=== PATIENT | male | born 1990 | race Caucasian/White ===

== ENCOUNTER 2018-08-13 18:23 | Emergency (ER) | payer BC ==
[~2018-08-13] VITALS: Ht 165.1 cm; Wt 98.0 kg
[2018-08-13 18:50] VITALS: Ht 165.1 cm; Wt 98.0 kg
[2018-08-13 22:44] VITALS: BP 153/76
== END 2018-08-13 22:43 | disposition home or self-care (01) ==
LOC: ED 18:23
DX: S92.421A Displaced fracture of distal phalanx of right great toe, initial encounter for closed fracture (principal); S91.211A Laceration without foreign body of right great toe with damage to nail, initial encounter; X58.XXXA Exposure to other specified factors, initial encounter; Y93.89 Activity, other specified; Y92.89 Other specified places as the place of occurrence of the external cause; Y99.8 Other external cause status
CPT/HCPCS: J1885

== ENCOUNTER 2020-03-11 03:27 | Emergency (ER) | payer BC ==
[~2020-03-11] VITALS: Ht 165.1 cm; Wt 99.3 kg
[2020-03-11 03:39] VITALS: Ht 165.1 cm; Wt 99.3 kg
[2020-03-11 04:50] LABS: BASOPHIL % 0.5 % (0.2-1.5); PLATELET COUNT 147 x10^3mcL (152-348); RED CELL DISTRIBUTION WIDTH 12.6 % (12.1-16.2)
[2020-03-11 05:11] LABS: CALCIUM 8.9 mg/dL (8.5-10.1); CHLORIDE SERUM 102 mmol/L (98-107); CREATININE SERUM 1.1 mg/dL (0.7-1.3); GFR1 > 60 mL/min; GLUCOSE SERUM 100 mg/dL (74-106); POTASSIUM SERUM 3.6 mmol/L (3.5-5.1); SODIUM SERUM 139 mmol/L (136-145)
[2020-03-11 05:16] LABS: ALKALINE PHOSPHATASE 45 U/L (46-116); ALT/SGPT 47 U/L (16-63); AST/SGOT 24 U/L (15-37); BILIRUBIN TOTAL 0.59 mg/dL (0.20-1.00); TOTAL PROTEIN, SERUM 8.2 g/dL (6.4-8.2)
[2020-03-11 05:29] VITALS: BP 122/76
== END 2020-03-11 05:29 | disposition home or self-care (01) ==
LOC: ED 03:27
PROVIDERS: Emergency Medicine
DX: R00.2 Palpitations (principal)

== ENCOUNTER 2020-03-15 06:19 | Emergency (ER) | payer BC ==
[~2020-03-15] VITALS: Ht 165.1 cm; Wt 97.6 kg
[2020-03-15 10:38] LABS: CALCIUM 8.6 mg/dL (8.5-10.1); CARBON DIOXIDE 30.2 mmol/L (21-32); CHLORIDE SERUM 103 mmol/L (98-107); GFR1 > 60 mL/min; GLUCOSE SERUM 96 mg/dL (74-106); POTASSIUM SERUM 4.1 mmol/L (3.5-5.1); SODIUM SERUM 140 mmol/L (136-145)
[2020-03-15 10:50] LABS: ALBUMIN 4.1 g/dL (3.4-5.0); ALKALINE PHOSPHATASE 46 U/L (46-116); ALT/SGPT 44 U/L (16-63); AST/SGOT 22 U/L (15-37); BILIRUBIN TOTAL 0.3 mg/dL (0.20-1.00); CHOLESTEROL 176 mg/dL (<200); CHOLESTEROL/HDL RATIO 3.1; HDL CHOLESTEROL 57 mg/dL (40-60); TOTAL PROTEIN, SERUM 8.2 g/dL (6.4-8.2); TRIGLYCERIDES 62 mg/dL (<150)
[2020-03-15 13:00] VITALS: BP 125/92
== END 2020-03-15 13:00 | disposition home or self-care (01) ==
LOC: ED 06:19
PROVIDERS: Emergency Medicine
DX: R20.0 Anesthesia of skin (principal); R20.2 Paresthesia of skin; R06.02 Shortness of breath; R00.2 Palpitations